=== PATIENT | male | born 1960 | race Caucasian/White ===

== ENCOUNTER 2021-06-08 00:12 | Inpatient (IN) ==
[2021-06-08] MEDS ORDERED: Al Hydrox/Mg Hydrox/Simet LIQ 30 ML UDC PO PRN (05:05)
[2021-06-08 05:09] VITALS: BP 126/81
[2021-06-08] MEDS ORDERED: Vitamin THERAPEUTIC TAB PO SCH (09:00)
[2021-06-08 12:15] LABS: HIV 4th Generation Preliminary Reactive (Nonreactive)
[2021-06-08] MEDS ORDERED: NON FORMULARY RESPIRATORY MED 1 DOSE MISC PO SCH (13:00)
[2021-06-08] MEDS ORDERED: Bictegravir/Emtricit/Tenofov 1 TABLET PO SCH (13:00)
[2021-06-11 14:53] LABS: HIV-1 Ab Differentiation,P Positive (Negative); HIV-2 Ab Differentiation,P Negative (Negative)
== END 2021-06-08 14:33 | disposition home or self-care (01) | DRG 897 ==
LOC: ED 00:12 → BSU 02:59
PROVIDERS: ADMIT Psychiatry & Neurology Psychiatry; ATTEND Psychiatry & Neurology Psychiatry